=== PATIENT | female | born 1985 | race Caucasian/White ===

== ENCOUNTER 2017-02-26 17:13 | Emergency (ER) | payer SELFPAY ==
[~2017-02-26] VITALS: Ht 154.9 cm; Wt 56.7 kg
[2017-02-26] MEDS ORDERED: MORPHINE 2 MG/ML 1ML SYRINGE IV ONE (18:00)
[2017-02-26] MEDS ORDERED: ONDANSETRON 4MG/2ML VIAL (J2405) IV ONE (18:00)
[2017-02-26] MEDS ORDERED: NS 1,000 ML IV ONE (18:00)
[2017-02-26] MEDS ORDERED: ACETAMINOPHEN 325 MG TAB PO ONE (18:30)
[2017-02-26] MEDS ORDERED: ONDANSETRON 4 MG ORAL DISINTEGRATING TAB (S0181) PO ONE (18:30)
[2017-02-26 18:34] LABS: CONTROL LINE UCG INT CTR LINE PRESENT
[2017-02-26 20:14] LABS: BASO # 0.1 K/mm3 (0.0-0.2); BASO % 0.5 % (0.0-1.0); EOS # 0.4 K/mm3 (0.0-0.50); EOS % 2.5 % (0.0-3.0); LARGE UNSTAINED CELL # 0.2 K/mm3 (0.0-0.4); LARGE UNSTAINED CELL % 1.3 % (0.0-4.0); LYMPH # 2.2 K/mm3 (1.5-4.5); LYMPH % 11.3 % (24.0-44.0); MEAN CORPUSCULAR HEMOGLOBIN 31.7 pg (27.0-33.0); MEAN CORPUSCULAR HGB CONC 34.4 g/dl (32.0-36.5); MONO % 5.5 % (0.0-5.0); NEUTROPHILS % 78.9 % (36.0-66.0); PLATELET COUNT, AUTOMATED 202 k/mm3 (150-450); RED CELL DISTRIBUTION WIDTH 11.9 % (11.5-14.5); WHITE BLOOD COUNT 17.7 K/mm3 (4.0-10.0)
[2017-02-26 20:37] LABS: ALBUMIN 3.2 GM/DL (3.2-5.2); ALBUMIN/GLOBULIN RATIO 0.82 (1.00-1.93); ALKALINE PHOSPHATASE 78 U/L (45-117); ALT/SGPT 26 U/L (12-78); ANION GAP 9 MEQ/L (8-16); AST/SGOT 18 U/L (15-37); BILIRUBIN,DIRECT 0.2 MG/DL (0.0-0.2); BILIRUBIN,TOTAL 0.7 MG/DL (0.2-1.0); BLOOD UREA NITROGEN 10 MG/DL (7-18); CALCIUM LEVEL 8.4 MG/DL (8.5-10.1); CARBON DIOXIDE LEVEL 22 MEQ/L (21-32); CHLORIDE LEVEL 106 MEQ/L (98-107); CREATININE FOR GFR 0.83 MG/DL (0.55-1.02); GLOMERULAR FILTRATION RATE > 60.0 (>60); GLUCOSE, FASTING 131 MG/DL (70-105); POTASSIUM SERUM 4.1 MEQ/L (3.5-5.1); SODIUM LEVEL 137 MEQ/L (136-145); TOTAL PROTEIN 7.1 GM/DL (6.4-8.2)
[2017-02-26 20:44] VITALS: BP 109/65
[2017-02-26] MEDS ORDERED: cefTRIAXone SOD 1 GM VIAL (J0696) IM ONE (20:45)
[2017-02-26] MEDS ORDERED: CIPROFLOXACIN 500 MG TAB PO ONE (20:45)
[2017-02-26] MEDS ORDERED: ZOFR4TAB3 PO (20:53)
[2017-02-26] MEDS ORDERED: CIPR500T89 PO (20:53)
== END 2017-02-26 21:16 | disposition home or self-care (01) ==
LOC: M ED 17:59
DX: N10 Acute pyelonephritis (principal); N30.00 Acute cystitis without hematuria; R10.31 Right lower quadrant pain; F32.9 Major depressive disorder, single episode, unspecified; F17.200 Nicotine dependence, unspecified, uncomplicated
CPT/HCPCS: 36415; 80048; 80076; 81001; 81025; 84703; 85025; 87086; 96372; 99283; J0696

== ENCOUNTER 2017-03-25 15:26 | Emergency (ER) | payer MEDICAID, SELFPAY ==
[~2017-03-25] VITALS: Ht 154.9 cm; Wt 56.8 kg
[~2017-03-25 15:26] MED LIST: CIPR-249 PO; ZOFR4TAB3 PO
[2017-03-25] MEDS ORDERED: NALOXONE INJ 2 MG/2 ML SYRINGE (J2310) IV STA (15:33)
[2017-03-25] MEDS ORDERED: NALOXONE INJ 2 MG/2 ML SYRINGE (J2310) ONE ×2 (15:45)
[2017-03-25 15:48] VITALS: BP 122/81
== END 2017-03-25 16:29 | disposition left against medical advice (07) ==
LOC: M ED 16:07
DX: F11.10 Opioid abuse, uncomplicated (principal)

== ENCOUNTER 2017-03-30 19:08 | Emergency (ER) | payer MEDICAID, SELFPAY ==
[~2017-03-30] VITALS: Ht 157.5 cm; Wt 58.8 kg
[2017-03-30] MEDS ORDERED: levETIRAcetam INJection 500 MG in D5W MINI-BAG PLUS 100 ML IV ONE (20:00)
[2017-03-30 20:17] LABS: ANION GAP 8 MEQ/L (8-16); BLOOD UREA NITROGEN 15 MG/DL (7-18); CALCIUM LEVEL 8.6 MG/DL (8.5-10.1); CARBON DIOXIDE LEVEL 28 MEQ/L (21-32); CHLORIDE LEVEL 104 MEQ/L (98-107); CREATININE FOR GFR 0.89 MG/DL (0.55-1.02); GLOMERULAR FILTRATION RATE > 60.0 (>60); GLUCOSE, FASTING 85 MG/DL (70-105); SODIUM LEVEL 140 MEQ/L (136-145)
[2017-03-30 20:19] LABS: BASO # 0.1 K/mm3 (0.0-0.2); BASO % 1.7 % (0.0-1.0); EOS # 0.2 K/mm3 (0.0-0.50); EOS % 3.1 % (0.0-3.0); LARGE UNSTAINED CELL # 0.3 K/mm3 (0.0-0.4); LARGE UNSTAINED CELL % 3.5 % (0.0-4.0); MEAN CORPUSCULAR HEMOGLOBIN 30.9 pg (27.0-33.0); MEAN CORPUSCULAR HGB CONC 32.9 g/dl (32.0-36.5); MONO # 0.3 K/mm3 (0.0-0.8); MONO % 4.7 % (0.0-5.0); NEUTROPHILS # 3.2 K/mm3 (1.8-7.7); PLATELET COUNT, AUTOMATED 267 k/mm3 (150-450); RED CELL DISTRIBUTION WIDTH 11.9 % (11.5-14.5); WHITE BLOOD COUNT 7.1 K/mm3 (4.0-10.0)
[2017-03-30 20:45] VITALS: BP 110/84
[2017-03-30 20:54] LABS: CONTROL LINE UCG INT CTR LINE PRESENT
[2017-03-30 21:25] LABS: METHADONE URINE NEGATIVE (NEGATIVE)
--- NOTE | 2017-03-30 21:30 | REPUSA ---
CT of the head Clinical history: seizures. Technique: Multiple axial CT images were obtained through the head without administration of contrast . Comparison: 11/26/2015. Findings: The ventricles and sulci are symmetric bilaterally. There is no evidence of acute hemorrhag e or infarct. There is no midline shift, mass effect, or extra-axial fluid collection. The osseous st ructures are unremarkable. The visualized paranasal sinuses and mastoid air cells are clear. Impression: Negative study.
[2017-03-30] MEDS ORDERED: KEPP1TAB PO (21:52)
== END 2017-03-30 22:22 | disposition home or self-care (01) ==
LOC: M ED 20:12
DX: F19.10 Other psychoactive substance abuse, uncomplicated (principal); G40.909 Epilepsy, unspecified, not intractable, without status epilepticus; Z91.14 Patient's other noncompliance with medication regimen; Z79.899 Other long term (current) drug therapy; Z88.6 Allergy status to analgesic agent
CPT/HCPCS: 70450; 80048; 80306; 84703; 85025; 96365; 99284; J1953

== ENCOUNTER 2017-06-06 02:34 | Emergency (ER) | payer MEDICAID, SELFPAY ==
[~2017-06-06] VITALS: Ht 154.9 cm; Wt 52.3 kg
[~2017-06-06 02:34] MED LIST changes: +KEPP1TAB PO
[2017-06-06] MEDS ORDERED: LIDOCAINE W/EPINEPHRINE 1% 20ML VIAL SC ONE (04:00)
[2017-06-06] MEDS ORDERED: LORazepam 2 MG/ML VIAL (J2060) IV STA (04:00)
[2017-06-06] MEDS ORDERED: NS 1,000 ML IV ONE (04:00)
[2017-06-06] MEDS ORDERED: KEFL500C17 PO (05:43)
[2017-06-06] MEDS ORDERED: TETANUS/DIPHTHERIA TOX ADSORB ADULT 0.5ML SYR/VIAL (90714) IM ONE (05:45)
[2017-06-06 06:48] VITALS: BP 126/78
== END 2017-06-06 06:51 | disposition home or self-care (01) ==
LOC: M ED 02:34
DX: S51.812A Laceration without foreign body of left forearm, initial encounter (principal); W25.XXXA Contact with sharp glass, initial encounter; Y92.018 Other place in single-family (private) house as the place of occurrence of the external cause; Y93.89 Activity, other specified; Y99.8 Other external cause status; F17.210 Nicotine dependence, cigarettes, uncomplicated; F19.20 Other psychoactive substance dependence, uncomplicated
CPT/HCPCS: 12034; 90471; 90714; 96374; 96375; 99283; J0690; J2060

== ENCOUNTER 2017-08-02 07:11 | Emergency (ER) | payer MEDICAID, OTHER ==
[~2017-08-02] VITALS: Ht 154.9 cm; Wt 55.0 kg
[~2017-08-02 07:11] MED LIST changes: +KEFL500C17 PO
--- NOTE | 2017-08-02 08:21 | REP ---
Right hand four views : There is no fracture or dislocation. Mineralization and joint spaces are normal. There are no calcifications or foreign bodies. There are two small bone cyst in the distal ulna. Impression: Negative right hand . Signed by José Miguel Espino MD 08/02/2017 08:12 A
[2017-08-02 08:29] VITALS: BP 138/78
== END 2017-08-02 08:32 | disposition home or self-care (01) ==
LOC: M ED 07:11
DX: S60.221A Contusion of right hand, initial encounter (principal); Z72.0 Tobacco use; W23.1XXA Caught, crushed, jammed, or pinched between stationary objects, initial encounter; Y92.099 Unspecified place in other non-institutional residence as the place of occurrence of the external cause; Y93.89 Activity, other specified; Y99.9 Unspecified external cause status

== ENCOUNTER → 2017-11-16 | Outpatient (CLI) | payer OTHER | LOC: M OUTALCOH 11:07 | DX: F11.20 Opioid dependence, uncomplicated (principal); F12.20 Cannabis dependence, uncomplicated ==

== ENCOUNTER 2017-11-27 13:54 | Outpatient (RCR) | payer MEDICAID | END 2017-12-06 | LOC: M OUTALCOH 13:54 | DX: F11.20 Opioid dependence, uncomplicated (principal); F17.200 Nicotine dependence, unspecified, uncomplicated ==

== ENCOUNTER 2017-12-15 15:00 | Outpatient (RCR) | payer MEDICAID | END 2018-01-06 | LOC: M OUTALCOH 12-19 09:00 | DX: F11.20 Opioid dependence, uncomplicated (principal); F17.200 Nicotine dependence, unspecified, uncomplicated ==

== ENCOUNTER 2018-01-08 11:51 | Outpatient (RCR) | payer MEDICAID | END 2018-02-05 | LOC: M OUTALCOH 11:51 | DX: F11.20 Opioid dependence, uncomplicated (principal); F17.200 Nicotine dependence, unspecified, uncomplicated ==

== ENCOUNTER 2019-04-02 07:15 | Emergency (ER) | payer MEDICAID, OTHER ==
[2019-04-02 07:15] VITALS: BP 133/94
[~2019-04-02 07:15] MED LIST changes: +ZOFR4TAB14 PO; -ZOFR4TAB3 PO
[2019-04-02] MEDS ORDERED: METH10CO PO (07:22)
[2019-04-02] MEDS ORDERED: methylPREDNISolone INJ 125 MG/2 ML VIAL (J2930) IV ONE (07:45)
[2019-04-02] MEDS ORDERED: NS 1,000 ML IV ONE (07:45)
[2019-04-02 08:25] LABS: BASO % 0.4 % (0.0-1.0); EOS # 0.2 10^3/uL (0.0-0.50); EOS % 2.7 % (0.0-3.0); HEMATOCRIT 37.1 % (36.0-47.0); HEMOGLOBIN 11.8 g/dl (12.0-15.5); LYMPH # 1.6 10^3/uL (1.5-4.5); LYMPH % 27.9 % (24.0-44.0); MEAN CORPUSCULAR HEMOGLOBIN 31.1 pg (27.0-33.0); MEAN CORPUSCULAR HGB CONC 31.8 g/dl (32.0-36.5); MEAN CORPUSCULAR VOLUME 97.9 fl (80.0-96.0); MONO # 0.6 10^3/uL (0.0-0.8); MONO % 10.5 % (0.0-5.0); NEUTROPHILS # 3.3 10^3/uL (1.8-7.7); NEUTROPHILS % 58.1 % (36.0-66.0); PLATELET COUNT, AUTOMATED 205 10^3/uL (150-450); RED BLOOD COUNT 3.79 10^6/uL (4.00-5.40); WHITE BLOOD COUNT 5.6 10^3/uL (4.0-10.0)
[2019-04-02 08:47] LABS: ERYTHROCYTE SEDIMENTATION RATE 19 mm/hr (0-20)
[2019-04-02 09:02] LABS: BLOOD UREA NITROGEN 17 MG/DL (7-18); C REACTIVE PROTEIN QUANTITATIV 0.69 MG/DL (0.00-0.30); CALCIUM LEVEL 8.2 MG/DL (8.5-10.1); CARBON DIOXIDE LEVEL 29 MEQ/L (21-32); CHLORIDE LEVEL 107 MEQ/L (98-107); CREATININE FOR GFR 0.71 MG/DL (0.55-1.30); GLOMERULAR FILTRATION RATE > 60.0 (>60); GLUCOSE, FASTING 109 MG/DL (70-100); SODIUM LEVEL 138 MEQ/L (136-145)
[2019-04-02] MEDS ORDERED: BACT800T5 PO (09:28)
[2019-04-02] MEDS ORDERED: PRED20TA PO (09:30)
== END 2019-04-02 09:35 | disposition left against medical advice (07) ==
LOC: M ED 07:15
DX: L03.012 Cellulitis of left finger (principal); R60.0 Localized edema; M65.842 Other synovitis and tenosynovitis, left hand; F90.9 Attention-deficit hyperactivity disorder, unspecified type; Z79.891 Long term (current) use of opiate analgesic; Z88.8 Allergy status to other drugs, medicaments and biological substances; F17.210 Nicotine dependence, cigarettes, uncomplicated
CPT/HCPCS: 80048; 81001; 85025; 85652; 86140; 87086; 96374; 99284; J2930

== ENCOUNTER 2019-06-07 11:45 | Emergency (ER) | payer OTHER ==
[~2019-06-07 11:45] MED LIST changes: +BACT800T5 PO; +METH10CO PO; +PRED20TA PO
[2019-06-07] MEDS ORDERED: CLON-412 PO (12:24)
[2019-06-07] MEDS ORDERED: REME30TA PO (12:24)
[2019-06-07 13:30] VITALS: BP 138/82
== END 2019-06-07 13:31 | disposition home or self-care (01) ==
LOC: M ED 11:45 → EDBD 11:45 → M ED 13:31
DX: F43.0 Acute stress reaction (principal); F33.9 Major depressive disorder, recurrent, unspecified; Z79.891 Long term (current) use of opiate analgesic; F17.210 Nicotine dependence, cigarettes, uncomplicated

== ENCOUNTER 2019-10-06 04:55 | Emergency (ER) | payer OTHER ==
[~2019-10-06] VITALS: Ht 152.4 cm; Wt 49.1 kg
[~2019-10-06 04:55] MED LIST changes: +CLON-412 PO; +REME30TA PO
[2019-10-06] MEDS ORDERED: METHOCARBAMOL 1,000 MG/10 ML VIAL (J2800) IV ONE (06:15)
[2019-10-06] MEDS ORDERED: KETOROLAC 30 MG/ML VIAL (J1885) IV ONE (06:15)
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
[2019-10-06 08:11] VITALS: BP 127/83
[2019-10-06] MEDS ORDERED: KETO10TAB PO (08:29)
== END 2019-10-06 08:32 | disposition home or self-care (01) ==
LOC: M ED 04:55
DX: S22.42XA Multiple fractures of ribs, left side, initial encounter for closed fracture (principal); X58.XXXA Exposure to other specified factors, initial encounter; Y92.9 Unspecified place or not applicable; Y93.9 Activity, unspecified; Y99.9 Unspecified external cause status; F17.200 Nicotine dependence, unspecified, uncomplicated; Z79.899 Other long term (current) drug therapy; Z88.6 Allergy status to analgesic agent
CPT/HCPCS: 71101; 96374; 96375; 99284; J1885; J2800

== ENCOUNTER 2020-08-09 13:06 | Emergency (ER) | payer OTHER ==
[~2020-08-09 13:06] MED LIST changes: +KETO10TAB PO
[2020-08-09 13:59] LABS: BASO % 0.2 % (0.0-1.0); EOS % 0.1 % (0.0-3.0); HEMATOCRIT 39.9 % (36.0-47.0); HEMOGLOBIN 12.9 g/dl (12.0-15.5); LYMPH # 0.8 10^3/uL (1.5-5.0); LYMPH % 5.7 % (24.0-44.0); MEAN CORPUSCULAR HEMOGLOBIN 28.4 pg (27.0-33.0); MEAN CORPUSCULAR HGB CONC 32.3 g/dl (32.0-36.5); MEAN CORPUSCULAR VOLUME 87.7 fl (80.0-96.0); MONO # 0.9 10^3/uL (0.0-0.8); MONO % 6.5 % (0.0-5.0); NEUTROPHILS # 11.7 10^3/uL (1.5-8.5); NEUTROPHILS % 87.1 % (36.0-66.0); PLATELET COUNT, AUTOMATED 233 10^3/uL (150-450); RED BLOOD COUNT 4.55 10^6/uL (4.00-5.40); WHITE BLOOD COUNT 13.4 10^3/uL (4.0-10.0)
[2020-08-09 14:02] LABS: AMPHETAMINES LEVEL URINE NEGATIVE (NEGATIVE); BARBITURATES URINE NEGATIVE (NEGATIVE); BENZODIAZEPINES URINE NEGATIVE (NEGATIVE); CANNABINOIDS URINE NEGATIVE (NEGATIVE); COCAINE METABOLITE URINE NEGATIVE (NEGATIVE); METHADONE URINE POSITIVE (NEGATIVE); OPIATES URINE POSITIVE (NEGATIVE); PHENCYCLIDINE URINE NEGATIVE (NEGATIVE)
[2020-08-09] MEDS ORDERED: ONDANSETRON 4MG/2ML VIAL IV ONE (14:15)
[2020-08-09] MEDS ORDERED: VALPROATE SOD INJ 1,000 MG in D5W 50 ML IV ONE (14:15)
[2020-08-09] MEDS ORDERED: NS 1,000 ML IV ONE (14:15)
[2020-08-09 15:28] LABS: HCG, SERUM QUALITATIVE NEGATIVE (NEGATIVE)
[2020-08-09 15:33] LABS: BLOOD UREA NITROGEN 14 MG/DL (7-18); CALCIUM LEVEL 8.3 MG/DL (8.5-10.1); CARBON DIOXIDE LEVEL 27 MEQ/L (21-32); CHLORIDE LEVEL 110 MEQ/L (98-107); GLOMERULAR FILTRATION RATE > 60.0 (>60); GLUCOSE, FASTING 101 MG/DL (70-100); POTASSIUM SERUM 4.1 MEQ/L (3.5-5.1); SODIUM LEVEL 142 MEQ/L (136-145)
--- NOTE | 2020-08-09 15:53 | REP ---
INDICATION: Syncope. COMPARISON: March 30, 2017.. TECHNIQUE: Helical scanning is acquired. 5 mm axial images were reformatted. Coronal MPR images were generated. FINDINGS: Bone window settings demonstrate an intact bony calvarium. There is no evidence of skull fracture or incidental bony calvarial lesion. The visualized paranasal sinuses appear clear. No intraorbital abnormality is seen. On soft tissue window setting images; the lateral, third, and fourth ventricles are normal in size and position. Cadet-white differentiation pattern is normal above and below the tentorium. There are is no evidence of intracranial hemorrhage. No mass, edema, infarction, or midline shift is seen. No extra-axial fluid collection is appreciated. IMPRESSION: Negative noncontrast head CT. <Electronically signed by Oscar Mirza > 08/09/20 [id number]
[2020-08-09] MEDS ORDERED: DEPA250T2 PO (16:24)
[2020-08-09 16:46] VITALS: BP 130/88
--- NOTE | 2020-08-10 07:49 | ECGEPIP ---
[facility] - ED Test Date: 2020-08-09 Pat Name: PETR CASON Department: Room: - Gender: Female [employer]: GUS : 1985 Requested By: HAYLEY Morales Order Number: [id number] Reading MD: Valerie Stein Measurements Intervals [place] Rate: 102 P: 79 OR: 135 QRS: 67 QRSD: 86 T: 63 QT: 333 QTc: 436 Interpretive Statements SINUS TACHYCARDIA ABNORMAL RHYTHM ECG NO PRIOR Electronically Signed on 08-10-2020 7:49:19 EST by Valerie Stein
== END 2020-08-09 16:52 | disposition home or self-care (01) ==
LOC: EDBD 13:06 → M ED 13:06
DX: G40.909 Epilepsy, unspecified, not intractable, without status epilepticus (principal); Z88.8 Allergy status to other drugs, medicaments and biological substances; Z87.820 Personal history of traumatic brain injury
CPT/HCPCS: 36415; 70450; 80048; 80307; 81001; 84703; 85025; 93005; 93041; 94760; 96365; 96366; 96375; 99285; J2405

== ENCOUNTER → 2021-06-23 | Outpatient (CLI) | payer MEDICAID ==
[~2021-06-23] MED LIST changes: +DEPA250T2 PO; +MIRT-60 PO; -REME30TA PO
[2021-06-23 17:21] LABS: ALBUMIN 3.9 GM/DL (3.2-5.2); ALT/SGPT 107 U/L (12-78); BILIRUBIN,DIRECT 0.1 MG/DL (0.0-0.2); BILIRUBIN,TOTAL 0.5 MG/DL (0.2-1.0); BLOOD UREA NITROGEN 15 MG/DL (7-18); CALCIUM LEVEL 9.2 MG/DL (8.5-10.1); CARBON DIOXIDE LEVEL 30 MEQ/L (21-32); CHLORIDE LEVEL 104 MEQ/L (98-107); GLOMERULAR FILTRATION RATE > 60.0 (>60); GLUCOSE, FASTING 96 MG/DL (70-100); POTASSIUM SERUM 4.4 MEQ/L (3.5-5.1); SODIUM LEVEL 140 MEQ/L (136-145); TOTAL PROTEIN 7.9 GM/DL (6.4-8.2)
[2021-06-23 17:42] LABS: HEPATITIS B SURFACE ANTIGEN NEGATIVE (NEGATIVE)
[2021-06-23 18:08] LABS: HEPATITIS B CORE ANTIBODY IGM NEGATIVE (NEGATIVE)
[2021-06-23 18:12] LABS: HEPATITIS A ANTIBODY IGM NEGATIVE (NEGATIVE)
[2021-06-23 18:24] LABS: HEPATITIS C VIRUS ABY INDEX > 11.0 INDEX (<0.8)
== END ==
LOC: M LAB 15:29
DX: F31.81 Bipolar II disorder (principal)

== ENCOUNTER → 2021-07-02 | Outpatient (CLI) | payer MEDICAID, OTHER ==
[2021-07-02 15:31] LABS: ALBUMIN 3.4 GM/DL (3.2-5.2); BLOOD UREA NITROGEN 15 MG/DL (7-18); CALCIUM LEVEL 9.2 MG/DL (8.5-10.1); CARBON DIOXIDE LEVEL 30 MEQ/L (21-32); CHLORIDE LEVEL 105 MEQ/L (98-107); CREATININE FOR GFR 0.86 MG/DL (0.55-1.30); FREE T4 0.91 NG/DL (0.76-1.46); GLOMERULAR FILTRATION RATE > 60.0 (>60); GLUCOSE, FASTING 89 MG/DL (70-100); LITHIUM LEVEL 0.24 MEQ/L (0.60-1.20); PHOSPHORUS LEVEL 3.6 MG/DL (2.5-4.9); POTASSIUM SERUM 4.7 MEQ/L (3.5-5.1); SODIUM LEVEL 138 MEQ/L (136-145); TOTAL 25(OH) VITAMIN D 38.2 NG/ML (30.0-100.0)
== END ==
LOC: M LAB 13:04
DX: F31.81 Bipolar II disorder (principal)

== ENCOUNTER → 2021-08-04 | Outpatient (CLI) | payer MEDICAID, OTHER ==
[2021-08-04 14:04] LABS: ALBUMIN 3.6 GM/DL (3.2-5.2); BLOOD UREA NITROGEN 11 MG/DL (7-18); CALCIUM LEVEL 9.5 MG/DL (8.5-10.1); CARBON DIOXIDE LEVEL 30 MEQ/L (21-32); CHLORIDE LEVEL 105 MEQ/L (98-107); CREATININE FOR GFR 1.05 MG/DL (0.55-1.30); FREE T4 0.95 NG/DL (0.76-1.46); GLOMERULAR FILTRATION RATE > 60.0 (>60); GLUCOSE, FASTING 111 MG/DL (70-100); LITHIUM LEVEL 0.47 MEQ/L (0.60-1.20); PHOSPHORUS LEVEL 4.1 MG/DL (2.5-4.9); POTASSIUM SERUM 4.1 MEQ/L (3.5-5.1); SODIUM LEVEL 138 MEQ/L (136-145); TOTAL T3 148.5 NG/DL (60.0-181.0)
== END ==
LOC: M LAB 12:23
PROVIDERS: ATTEND Registered Nurse Psychiatric/Mental Health
DX: F31.81 Bipolar II disorder (principal); Z79.899 Other long term (current) drug therapy

== ENCOUNTER → 2021-08-18 | Outpatient (REF) | LOC: M LAB 13:34 | PROVIDERS: ATTEND Nurse Practitioner Adult Health | DX: Z02.89 Encounter for other administrative examinations (principal) ==

== ENCOUNTER → 2021-09-08 | Outpatient (CLI) | payer OTHER ==
[2021-09-08 16:18] LABS: ALBUMIN 3.8 GM/DL (3.2-5.2); BLOOD UREA NITROGEN 13 MG/DL (7-18); CALCIUM LEVEL 9.6 MG/DL (8.5-10.1); CARBON DIOXIDE LEVEL 31 MEQ/L (21-32); CHLORIDE LEVEL 104 MEQ/L (98-107); CREATININE FOR GFR 1.03 MG/DL (0.55-1.30); FREE T4 0.92 NG/DL (0.76-1.46); GLOMERULAR FILTRATION RATE > 60.0 (>60); GLUCOSE, FASTING 84 MG/DL (70-100); LITHIUM LEVEL 0.67 MEQ/L (0.60-1.20); PHOSPHORUS LEVEL 4.5 MG/DL (2.5-4.9); POTASSIUM SERUM 4.4 MEQ/L (3.5-5.1); SODIUM LEVEL 140 MEQ/L (136-145); TOTAL T3 127.3 NG/DL (60.0-181.0)
== END ==
LOC: M PLALAB 12:30
PROVIDERS: ATTEND Registered Nurse Psychiatric/Mental Health
DX: F31.81 Bipolar II disorder (principal)

== ENCOUNTER → 2021-10-22 | Outpatient (CLI) | payer OTHER ==
[2021-10-22 18:52] LABS: HEMATOCRIT 40.6 % (36.0-47.0); HEMOGLOBIN 12.8 g/dl (12.0-15.5); MEAN CORPUSCULAR HEMOGLOBIN 30.1 pg (27.0-33.0); MEAN CORPUSCULAR HGB CONC 31.5 g/dl (32.0-36.5); MEAN CORPUSCULAR VOLUME 95.5 fl (80.0-96.0); PLATELET COUNT, AUTOMATED 239 10^3/uL (150-450); RED BLOOD COUNT 4.25 10^6/uL (4.00-5.40); WHITE BLOOD COUNT 6.2 10^3/uL (4.0-10.0)
[2021-10-22 19:19] LABS: ALBUMIN 3.9 GM/DL (3.2-5.2); ALT/SGPT 25 U/L (12-78); BILIRUBIN,TOTAL 0.5 MG/DL (0.2-1.0); BLOOD UREA NITROGEN 16 MG/DL (7-18); CALCIUM LEVEL 9.2 MG/DL (8.5-10.1); CARBON DIOXIDE LEVEL 32 MEQ/L (21-32); CHLORIDE LEVEL 104 MEQ/L (98-107); CREATININE FOR GFR 1.05 MG/DL (0.55-1.30); FREE T4 1.02 NG/DL (0.76-1.46); GLOMERULAR FILTRATION RATE > 60.0 (>60); GLUCOSE, FASTING 78 MG/DL (70-100); LITHIUM LEVEL 0.54 MEQ/L (0.60-1.20); PHOSPHORUS LEVEL 3.3 MG/DL (2.5-4.9); POTASSIUM SERUM 4.6 MEQ/L (3.5-5.1); SODIUM LEVEL 139 MEQ/L (136-145); TOTAL PROTEIN 7.9 GM/DL (6.4-8.2)
[2021-10-22 19:20] LABS: HCG, SERUM QUALITATIVE NEGATIVE (NEGATIVE)
[2021-10-22 19:21] LABS: TOTAL T3 115.5 NG/DL (60.0-181.0)
[2021-10-22 19:32] LABS: HEPATITIS B SURFACE ANTIGEN NEGATIVE (NEGATIVE)
[2021-10-22 20:01] LABS: HIV 1&2 SCREEN CENTAUR NEGATIVE (NEGATIVE)
[2021-10-22 20:14] LABS: HEPATITIS C VIRUS ABY INDEX > 11.0 INDEX (<0.8)
[2021-10-22 21:00] LABS: GC DNA AMPLIFICATION NEGATIVE (NEGATIVE)
== END ==
LOC: M EKG 10:56
PROVIDERS: ATTEND Registered Nurse Psychiatric/Mental Health
DX: F11.20 Opioid dependence, uncomplicated (principal); F15.11 Other stimulant abuse, in remission

== ENCOUNTER → 2021-11-22 | Outpatient (CLI) | payer OTHER | LOC: M RAD 13:49 | PROVIDERS: ATTEND Pediatrics | DX: R22.1 Localized swelling, mass and lump, neck (principal) ==

== ENCOUNTER → 2021-12-10 | Outpatient (CLI) | payer OTHER ==
[2021-12-10 12:28] LABS: BASO % 0.7 % (0.0-1.0); EOS # 0.2 10^3/uL (0.0-0.5); EOS % 3.3 % (0.0-3.0); HEMATOCRIT 42.6 % (36.0-47.0); HEMOGLOBIN 13.5 g/dl (12.0-15.5); LYMPH # 2.5 10^3/uL (1.5-5.0); LYMPH % 46.5 % (24.0-44.0); MEAN CORPUSCULAR HEMOGLOBIN 29.5 pg (27.0-33.0); MEAN CORPUSCULAR HGB CONC 31.7 g/dl (32.0-36.5); MEAN CORPUSCULAR VOLUME 93.2 fl (80.0-96.0); MONO # 0.5 10^3/uL (0.0-0.8); MONO % 9.2 % (2.0-8.0); NEUTROPHILS # 2.2 10^3/uL (1.5-8.5); NEUTROPHILS % 39.8 % (36.0-66.0); PLATELET COUNT, AUTOMATED 176 10^3/uL (150-450); RED BLOOD COUNT 4.57 10^6/uL (4.00-5.40); WHITE BLOOD COUNT 5.5 10^3/uL (4.0-10.0)
[2021-12-10 13:22] LABS: ALBUMIN 3.8 GM/DL (3.2-5.2); ALT/SGPT 49 U/L (12-78); BILIRUBIN,TOTAL 0.2 MG/DL (0.2-1.0); BLOOD UREA NITROGEN 15 MG/DL (7-18); CALCIUM LEVEL 9.4 MG/DL (8.5-10.1); CARBON DIOXIDE LEVEL 27 MEQ/L (21-32); CHLORIDE LEVEL 109 MEQ/L (98-107); CHOLESTEROL LEVEL 115 MG/DL (<200); CHOLESTEROL RISK RATIO 2.254 (<5); CREATININE FOR GFR 1.03 MG/DL (0.55-1.30); GLOMERULAR FILTRATION RATE > 60.0 (>60); GLUCOSE, FASTING 78 MG/DL (70-100); HDL CHOLESTEROL 51 MG/DL (>40); LDL CHOLESTEROL 53 MG/DL (<100); NON-HDL-C 64 MG/DL; POTASSIUM SERUM 4.1 MEQ/L (3.5-5.1); SODIUM LEVEL 138 MEQ/L (136-145); TOTAL PROTEIN 7.8 GM/DL (6.4-8.2); TRIGLYCERIDES LEVEL 55 MG/DL (<150)
== END ==
LOC: M LAB 10:50
PROVIDERS: ATTEND Pediatrics
DX: F11.21 Opioid dependence, in remission (principal); E03.9 Hypothyroidism, unspecified

== ENCOUNTER → 2021-12-13 | Outpatient (REF) | payer OTHER ==
[2021-12-14 11:35] LABS: THYROID PEROXIDASE ANTIBODY 28.7 U/ML (<60.0)
[2021-12-14 11:36] LABS: THYROGLOBULIN ANTIBODY < 15.0 U/ML (<60.0)
[2021-12-14 12:16] LABS: HIV 1&2 SCREEN CENTAUR NEGATIVE (NEGATIVE)
[2021-12-14 14:57] LABS: HEPATITIS C VIRUS ABY INDEX > 11.0 INDEX (<0.8)
== END ==
LOC: M LAB REF 11:06
PROVIDERS: ATTEND Pediatrics
DX: F11.21 Opioid dependence, in remission (principal); E03.9 Hypothyroidism, unspecified

== ENCOUNTER → 2023-03-28 | Outpatient (CLI) | payer OTHER ==
[2023-03-28 15:19] LABS: HEMATOCRIT 44.6 % (36.0-47.0); HEMOGLOBIN 13.8 g/dl (12.0-15.5); MEAN CORPUSCULAR HEMOGLOBIN 29.7 pg (27.0-33.0); MEAN CORPUSCULAR HGB CONC 30.9 g/dl (32.0-36.5); MEAN CORPUSCULAR VOLUME 95.9 fl (80.0-96.0); PLATELET COUNT, AUTOMATED 203 10^3/uL (150-450); RED BLOOD COUNT 4.65 10^6/uL (4.00-5.40); WHITE BLOOD COUNT 6.7 10^3/uL (4.0-10.0)
[2023-03-28 15:47] LABS: ALBUMIN 3.6 G/DL (3.2-5.2); ALKALINE PHOSPHATASE 49 U/L (46-116); ALT/SGPT 79 U/L (7.0-40); AST/SGOT 65 U/L (<34); BILIRUBIN,TOTAL 0.4 MG/DL (0.3-1.2); BLOOD UREA NITROGEN 19 MG/DL (9-23); CALCIUM LEVEL 8.6 MG/DL (8.5-10.1); CARBON DIOXIDE LEVEL 28 MMOL/L (20-31); CHLORIDE LEVEL 105 MMOL/L (98-107); CREATININE FOR GFR 0.85 MG/DL (0.55-1.30); GLOMERULAR FILTRATION RATE > 60.0 (>60); GLUCOSE, FASTING 74 MG/DL (60-100); POTASSIUM SERUM 4.6 MMOL/L (3.5-5.1); SODIUM LEVEL 136 MMOL/L (136-145); TOTAL PROTEIN 6.8 G/DL (5.7-8.2)
[2023-03-28 16:51] LABS: GC DNA AMPLIFICATION NEGATIVE (NEGATIVE)
[2023-03-28 20:56] LABS: HEPATITIS B SURFACE ANTIGEN NEGATIVE (NEGATIVE)
[2023-03-28 21:09] LABS: HIV 1&2 SCREEN NEGATIVE (NEGATIVE)
[2023-03-28 21:15] LABS: HCG, SERUM QUALITATIVE NEGATIVE (NEGATIVE)
[2023-03-28 21:25] LABS: HEPATITIS C VIRUS ABY INDEX > 11.00 INDEX (<0.8)
== END ==
LOC: M LAB 13:59
PROVIDERS: ATTEND Family Medicine
DX: F11.20 Opioid dependence, uncomplicated (principal)